=== PATIENT | male | born 1965 ===

== ENCOUNTER 2022-04-15 13:16 | Emergency (ER) | payer SELFPAY ==
[2022-04-15] MEDS ORDERED: HYDROmorphone 1 MG/ML Syringe IVPUSH ONE ×2 (13:38→17:46)
[2022-04-15] MEDS ORDERED: Ondansetron 4 MG/2 ML SDV IVPUSH ONE (13:38)
[2022-04-15] MEDS ORDERED: Sodium Chloride 0.9% 1,000 ML IV ONE ×2 (13:38→17:46)
[2022-04-15 14:29] LABS: CHLORIDE,CL 94 mmol/L (98-107)
[2022-04-15 14:43] LABS: ANION GAP 13.8 mEq/L (7-13); ESTIMATED GFR 93 mL/min (>=60); SODIUM,NA 133 mmol/L (136-145)
[2022-04-15] MEDS ORDERED: Iopamidol 612 MG/ML 100 ML Bottle IVPUSH ONE (14:47)
[2022-04-15] MEDS ORDERED: Meropenem 1 GM in Sodium Chloride 0.9% 100 ML IV ONE (17:24)
[2022-04-15 18:12] LABS: AMPHETAMINES,URINE NEGATIVE (NEGATIVE); BARBITURATES,URINE NEGATIVE (NEGATIVE); BENZODIAZEPINE,URINE NEGATIVE (NEGATIVE); MDMA (ECSTASY), URINE NEGATIVE (NEGATIVE); METHADONE,URINE NEGATIVE (NEGATIVE); METHAMPHETAMINES,URINE NEGATIVE (NEGATIVE); OPIATES,URINE POSITIVE (NEGATIVE); OXYCODONE,URINE NEGATIVE (NEGATIVE); PHENCYCLIDINE,URINE NEGATIVE (NEGATIVE); TCA,URINE NEGATIVE (NEGATIVE)
== END 2022-04-15 18:45 ==
LOC: DL.ED 13:16
DX: K35.20 Acute appendicitis with generalized peritonitis, without abscess (principal); Z88.0 Allergy status to penicillin; Z20.822 Contact with and (suspected) exposure to COVID-19
CPT/HCPCS: 36410; 36415; 74177; 80053; 80305; 80307; 81001; 82140; 82150; 83605; 83690; 83735; 84145; 84484; 85025; 86140; 87635; 93005; 96365; 96375; 96376; 99285; J1170; J2185; J2405; J3370; J7030; J7040; Q9967; U0002